=== PATIENT | female | born 1960 | race Caucasian/White ===

== ENCOUNTER 2017-02-19 06:53 | Day surgery (SDC) | payer MEDICAID ==
[~2017-02-19 06:53] MED LIST: BACLOFEN10 MG PO; CYTOMEL25 MCG PO; DIOVAN80 MG PO; FLUTICASONE PRO16 GM NASAL; HYDROCHLOROTHIA25 MG PO; HYDROCODONE-APA1 TAB PO; LIBRIUM5 MG PO; LIPITOR20 MG PO; MULTIPLE VITAMI1 TA1 PO; OMEPRAZOLE40 MG PO; PAROXETINE HCL10 MG PO; PHENERGAN DM SYR5 ML; QVAR8.7 GM INH; SYNTHROID175 MCG PO; TALWIN NX1 TAB PO; TOPROL XL100 MG PO; TOPROL XL50 MG PO; VENTOLIN HFA18 GM INH; VESICARE5 MG PO; VISTARIL50 MG; ZYRTEC10 MG PO
[2017-02-19 07:40] LABS: HEMATOCRIT 41.8 % (36.0-48.0); HEMOGLOBIN 13.8 g/dL (12-16); MCH 28.6 pg (26.0-34.0); MCV 86.7 fL (80.0-100.0); MEAN PLATELET VOLUME 10.2 fL (7.4-10.4); RBC 4.82 10x6/uL (4.00-5.40); RDW 12.7 % (11.5-14.5); WBC 7.7 10x3/uL (4.8-10.8)
[2017-02-19] MEDS ORDERED: HYDROXYZINE HCL50 MG PO (08:49)
[2017-02-19] MEDS ORDERED: CHERATUSSIN AC473 ML PO (08:50)
[2017-02-19] MEDS ORDERED: PHENERGAN25 M1 PO (08:51)
[2017-02-19 08:57] VITALS: BP 125/77; BMI 25.8
[2017-02-19 14:35] VITALS: BP 163/75
[2017-02-19 14:45] VITALS: BP 163/75; BMI 25.8
--- NOTE | 2017-02-19 14:54 | NUR ---
PT AOX4 RESP EVEN AND NONLABORED PT DENIES NEEDS AT THIS TIME IV TO LEFT FOREARM PATENT AND INTACT AT THIS TIME SRX2 BED AT LOWEST SETTING CALL LIGHT WITHIN REACH WILL CONTINUE TO MONITOR
--- NOTE | 2017-02-19 17:02 | HP ---
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 She is being admitted for left parotidectomy. PAST MEDICAL HISTORY: Includes hypertension, reflux, and hypothyroidism. CURRENT MEDICATIONS: Atorvastatin, baclofen, hydrocodone, hydroxyzine, levothyroxine, liothyronine, metoprolol, omeprazole, promethazine, and VESIcare. SOCIAL HISTORY: She is a smoker. PHYSICAL EXAMINATION: GENERAL: She is a healthy-appearing. FACE: Normal, symmetric, no lesions. EYES: Sclerae and conjunctivae are normal. EARS: Canals and TMs are normal. NOSE: No mass, polyps or drainage. ORAL CAVITY AND OROPHARYNX: Palate is normal. Tongue protrudes midline. NECK: She has a left parotid mass 2 to 2.5 cm. CHEST: Clear. CARDIOVASCULAR: Regular rate and rhythm, no murmur. EXTREMITIES: Normal. IMPRESSION: Left parotid mass. PLAN: Left superficial parotidectomy. TRANSINT:[id number] Voice Confirmation ID: [id number] DOCUMENT ID: [id number] MIKE CHRISTINE MD at 1702 CC: [id number] DICTATION DATE: 02/16/17 0858 POULTRY BREEDER: 02/16/17 0922 [id number] [place] [address]
[2017-02-19 20:00] VITALS: BP 125/61
[2017-02-20] VITALS: BP 120/62
--- NOTE | 2017-02-20 03:54 | NUR ---
REC'D. CHGE. OF SHIFT COMIMG OUT BATHROOM.INCISION LEFT LATERAL SIDE OF NECK SUTURES AND AMELIA DRAIN INTACT.MINIMAL SWELLING OBSERVED.DENIES PAIN AT PRESENT TIME. WILL CONTINUE TO MONITOR FOR ANY CHGES. AND FOLLOW CURRENT PLAN OF CARE.
[2017-02-20 04:00] VITALS: BP 144/68
--- NOTE | 2017-02-20 07:00 | NUR ---
REPORT RECIEVED ASSUMED CARE. PATIENT IN BED WITH IV INTACT. NO COMPLAINTS AT HTIS TIME. CALL LIGHT WITHIN REACH.
--- NOTE | 2017-02-20 08:00 | NUR ---
DR. CHRISTINE INTO SEE PATIENT.
[2017-02-20 08:09] VITALS: BP 151/71
--- NOTE | 2017-02-20 08:11 | OP ---
PATIENT NAME: CHANO AVERY MEDICAL RECORD: [id number] :60 LOCATION: [id number] ADMISSION DATE: SURGEON: MIKE BENTLEY MD DATE OF OPERATION: 02/19/2017 PREOPERATIVE DIAGNOSIS: Left parotid mass. POSTOPERATIVE DIAGNOSIS: Left parotid mass. PROCEDURE: Left superficial parotidectomy with facial nerve dissection. SURGEON: Mike Bentley MD. ANESTHESIA: General orotracheal. BLOOD LOSS: Less than 5 cc. SPECIMEN: Left superficial parotid mass. FINDINGS: Frozen section consistent with pleomorphic adenoma. DRAINS: AMELIA through a separate stab incision inferior to the wound. COMPLICATIONS: None. DISPOSITION: Recovery, stable. DESCRIPTION OF PROCEDURE: She is brought to the operating room, placed in supine position, sedated and intubated by anesthesia. The head was turned to the right. The mass was clearly visible. Incision was marked and injected with 1 cc of 1% lidocaine with 1:100,000 epinephrine. She was prepped and draped in the usual sterile fashion. Exposing the corner of the eye and the corner of the mouth on the left side, incision was made along the preauricular area back to the neck and down a crease in the neck with a 15 blade. This was taken down through the skin with cautery. Metzenbaum scissors were used to start dissecting a flap anteriorly. Double prong skin hooks were used along with a Ray-Parvez for retraction, and with Yodit, the flap was dissected anteriorly over the parotid fascia. Two separate silk stitches were used anteriorly and one on the earlobe for retraction sutures. The sternocleidomastoid was dissected away from the parotid gland. The great auricular nerve was divided sharply with a 15 blade. The gland was dissected away from the tragal cartilages just anterior to the mastoid. This was dissected and a bipolar cautery was used before dividing some small vessels, and the gland was retracted anteriorly, then dissecting anteriorly into the gland. The facial nerve was identified. This can be done without disrupting the tumor, which was directly anterior to the parotid and tragus, not really in the tail of the parotid. Once the pes was identified, it was followed anteriorly along branches both superior and inferior to the mass, really did not have to even encounter the capsule of the mass, dissected all the nerves completely all the way anteriorly through the gland, and then the specimen was dissected free and removed without traumatizing any of the branches of the facial nerve. Frozen section returned consistent with pleomorphic adenoma. There was really no significant bleeding. The flap had been kept moist with a wet Ray-Parvez. All the retraction sutures were divided. The flap was replaced. A separate stab incision was made inferiorly. A AMELIA drain was placed, cut to length. Then, subcutaneous 5-0 Vicryl was used to approximate OPERATIVE REPORT [id number] CHANO AVERY the flap first at 3 separate hash gillespie that were made inferior to the earlobe and then 2 in the neck, and then the entire incision was closed with interrupted subcutaneous 5-0 Vicryl, and then the skin was closed with running 6-0 Prolene in front of the ear and a running 5-0 Prolene in the neck. AMELIA drain was attached. Antibiotic ointment was applied. She was awakened, extubated, and transported to recovery in good condition. No complications. Facial nerve function was completely intact and normal postoperatively. TRANSINT:[id number] Voice Confirmation ID: [id number] DOCUMENT ID: [id number] MIKE BENTLEY MD at 0811 CC: [id number] DICTATION DATE: 02/19/17 1640 DIRECTOR OF CONTENT AND PROGRAMMING: 02/19/172026 [facility] [address] [place] [address]
[2017-02-20] MEDS ORDERED: HYDROCODON-ACE1 EAC7 PO (10:13)
--- NOTE | 2017-02-20 11:00 | NUR ---
PATENT RECIEVED DC INSTRUCTIONS AT THIS TIME WITH PRESCRIPTIONS. IV REMOVED WITH CATH TIP INTACT. NO QUESTIONS AT THIS TIME. FLU SHOT AND PAIN MEDS GIVEN. CALL LIGHTW ITHIN REACH.
== END 2017-02-20 11:48 | disposition home or self-care (01) ==
LOC: D.OPS 06:53 → D.PAN 07:30 → D.OPS 08:00 → D.MS 13:47 → D.OPS 02-20 11:48
PROVIDERS: Anesthesiology
DX: D11.0 Benign neoplasm of parotid gland (principal); I10 Essential (primary) hypertension; K21.9 Gastro-esophageal reflux disease without esophagitis; E03.9 Hypothyroidism, unspecified; F17.200 Nicotine dependence, unspecified, uncomplicated; Z79.891 Long term (current) use of opiate analgesic; Z79.899 Other long term (current) drug therapy; Z01.812 Encounter for preprocedural laboratory examination

== ENCOUNTER → 2018-01-11 09:17 | Outpatient (CLI) | payer MEDICAID ==
[~2018-01-11 09:17] MED LIST changes: +CHERATUSSIN AC473 ML PO; +HYDROCODON-ACE1 EAC7 PO; +HYDROXYZINE HCL50 MG PO; +PHENERGAN25 M1 PO
== END | disposition home or self-care (01) ==
LOC: D.MRI 09:17
DX: M53.80 Other specified dorsopathies, site unspecified (principal)

== ENCOUNTER → 2018-05-24 09:56 | Outpatient (CLI) | payer MEDICAID | END | disposition home or self-care (01) | LOC: D.NM 09:56 | DX: G35 Multiple sclerosis (principal); E21.3 Hyperparathyroidism, unspecified ==

== ENCOUNTER → 2018-05-27 15:49 | Outpatient (CLI) | payer MEDICAID | END | disposition home or self-care (01) | LOC: D.MRI 15:49 | DX: G35 Multiple sclerosis (principal); E21.3 Hyperparathyroidism, unspecified ==